=== PATIENT | female | born 1965 | race Caucasian/White ===

== ENCOUNTER 2020-10-25 19:58 | Inpatient (IN) | payer OTHER ==
[~2020-10-25] VITALS: Ht 172.7 cm; Wt 102.4 kg
[2020-10-25] MEDS ORDERED: CYAN500 PO (20:11)
[2020-10-25 21:03] LABS: BASOPHILS ABSOLUTE AUTO 0.04 K/mm3 (0.00-0.23); BASOPHILS PERCENT AUTO 1 % (0-2); EOSINOPHILS ABSOLUTE AUTO 0.04 K/mm3 (0.00-0.68); EOSINOPHILS PERCENT AUTO 1 % (0-6); Hematocrit 28.5 % (33.0-51.0); Hemoglobin 8.4 g/dL (11.5-16.0); IMMATURE GRAN ABSOLUTE AUTO 0.02 K/mm3 (0.00-0.10); IMMATURE GRAN PERCENT AUTO 0 % (0-1); LYMPHOCYTES ABSOLUTE AUTO 0.66 K/mm3 (0.84-5.20); LYMPHOCYTES PERCENT AUTO 14 % (21-46); MONOCYTES ABSOLUTE AUTO 0.39 K/mm3 (0.16-1.47); MONOCYTES PERCENT AUTO 8 % (4-13); Mean Corpuscular HGB 28.3 pg (26.0-34.0); Mean Corpuscular HGB Conc 29.5 g/dL (31.5-36.5); Mean Corpuscular Volume 96 fL (80-100); Mean Platelet Volume 11.1 fL (9.1-12.4); NEUTROPHILS ABSOLUTE AUTO 3.63 K/mm3 (1.96-9.15); NEUTROPHILS PERCENT AUTO 76 % (41-73); RDW Coefficient Variation 18.3 % (11.7-14.2); RDW Standard Deviation 63.7 fL (35.1-46.3); Red Blood Cell Count 2.97 M/mm3 (3.80-5.20); White Blood Cell Count 4.78 K/mm3 (4.00-11.30)
[2020-10-25 21:07] LABS: Platelet Count 33 K/mm3 (150-400)
[2020-10-25 21:20] LABS: Alanine Aminotransfer (ALT/SGP 48 U/L (12-78); Albumin/Globulin Ratio 0.8 (0.8-1.8); Alk Phos 214 U/L (50-136); Anion Gap 8 mmol/L (6-16); Aspartate Aminotrans (AST/SGOT 120 U/L (12-37); Bilirubin, Total 1.4 mg/dL (0.1-1.0); Blood Urea Nitrogen 10 mg/dL (8-24); Bun/Creatinine Ratio 14.3 (12.0-20.0); CO2, Blood 26 mmol/L (21-32); Calcium, Blood 8.5 mg/dL (8.5-10.1); Chloride, Blood 109 mmol/L (98-108); Glomerular Filtration Rate >60 (60-); Glucose, Blood 99 mg/dL (70-99); Potassium, Blood 3.9 mmol/L (3.5-5.5); Sodium, Blood 143 mmol/L (136-145)
[2020-10-25] MEDS ORDERED: GABAPENTIN600 MG PO (22:27)
[2020-10-25 22:28] LABS: International Normalized Ratio 1.07; Prothrombin Time Results 11.4 Sec (9.7-11.5)
[2020-10-25] MEDS ORDERED: FOLI400 PO (22:28)
[2020-10-25] MEDS ORDERED: B-1100 M1 PO (22:28)
[2020-10-25] MEDS ORDERED: MELATONIN5 M1 PO (22:29)
[2020-10-25] MEDS ORDERED: MULVITA PO (22:29)
[2020-10-25] MEDS ORDERED: HYDPAM50 PO (22:30)
[2020-10-25] MEDS ORDERED: CLON.1 PO (22:32)
[2020-10-25] MEDS ORDERED: METO25 PO (22:33)
[2020-10-25] MEDS ORDERED: TRAZ50 PO (22:34)
[2020-10-25] MEDS ORDERED: PROM25 PO (22:34)
[2020-10-25] MEDS ORDERED: OMEP20ER PO (22:38)
[2020-10-25] MEDS ORDERED: SPIR25 PO (22:38)
[2020-10-25] MEDS ORDERED: ESCI10 PO (22:38)
--- NOTE | 2020-10-26 00:15 | NUR ---
ADMIT RECEIVED FROM ER VIA GURNEY. ORIENTED TO SELF AND EVENT. OCCASIONAL CONFUSED CONVERSATION. SLOW VERBAL RESPONSE NOTED. REPOSITIONS SELF IN BED. MOVES ALL EXTREMITIES. DENIES C/O PAIN OTHER THAN A MILD HEADACHE. ALSO C/O INTERMITTENT MILD NAUSEA. IMPULSIVE BEHAVIOR NOTED. BED ALARM ON. MONITOR SHOWS SR-ST, RATE 90s-100s. 2L NC. RESPIRATIONS EVEN AND UNLABORED. JACK PATENT AND DRAINING EMMANUEL URINE. BANANA BAG INFUSING AT 200CC/HR. SEE ADMIT ASSESSMENT FOR FULL ASSESSMENT.
[2020-10-26 02:04] LABS: U Amphetamine Screen Not Detected; U Barbituate Screen Not Detected; U Benzodiazapine Screen DETECTED; U Buprenorphine Screen Not Detected; U Cannabinoids Screen Not Detected; U Cocaine Screen Not Detected; U Methadone Screen Not Detected; U Methamphetamine Screen Not Detected; U Opiates Screen Not Detected; U Oxycodone Screen Not Detected; U Phencyclidine Screen Not Detected; U Propoxyphene Screen Not Detected
[2020-10-26 03:43] LABS: BASOPHILS ABSOLUTE AUTO 0.04 K/mm3 (0.00-0.23); BASOPHILS PERCENT AUTO 1 % (0-2); EOSINOPHILS ABSOLUTE AUTO 0.05 K/mm3 (0.00-0.68); EOSINOPHILS PERCENT AUTO 2 % (0-6); Hematocrit 24.4 % (33.0-51.0); Hemoglobin 7.2 g/dL (11.5-16.0); IMMATURE GRAN ABSOLUTE AUTO 0.01 K/mm3 (0.00-0.10); IMMATURE GRAN PERCENT AUTO 0 % (0-1); LYMPHOCYTES ABSOLUTE AUTO 0.81 K/mm3 (0.84-5.20); LYMPHOCYTES PERCENT AUTO 25 % (21-46); MONOCYTES ABSOLUTE AUTO 0.31 K/mm3 (0.16-1.47); MONOCYTES PERCENT AUTO 10 % (4-13); Mean Corpuscular HGB 28.3 pg (26.0-34.0); Mean Corpuscular HGB Conc 29.5 g/dL (31.5-36.5); Mean Corpuscular Volume 96 fL (80-100); Mean Platelet Volume 12.3 fL (9.1-12.4); NEUTROPHILS PERCENT AUTO 62 % (41-73); RDW Coefficient Variation 18.3 % (11.7-14.2); RDW Standard Deviation 63.1 fL (35.1-46.3); Red Blood Cell Count 2.54 M/mm3 (3.80-5.20); White Blood Cell Count 3.22 K/mm3 (4.00-11.30)
[2020-10-26 03:50] LABS: Platelet Count 29 K/mm3 (150-400)
[2020-10-26 04:00] LABS: Alanine Aminotransfer (ALT/SGP 39 U/L (12-78); Albumin, Blood 2.6 g/dL (3.4-5.0); Albumin/Globulin Ratio 0.8 (0.8-1.8); Alk Phos 175 U/L (50-136); Anion Gap 5 mmol/L (6-16); Aspartate Aminotrans (AST/SGOT 98 U/L (12-37); Bilirubin, Total 1.5 mg/dL (0.1-1.0); Blood Urea Nitrogen 10 mg/dL (8-24); Bun/Creatinine Ratio 16.2 (12.0-20.0); CO2, Blood 28 mmol/L (21-32); Calcium, Blood 7.9 mg/dL (8.5-10.1); Chloride, Blood 109 mmol/L (98-108); Creatinine, Blood 0.62 mg/dL (0.40-1.00); Globulin, Blood 3.4 g/dL (2.2-4.0); Glomerular Filtration Rate >60 (60-); Glucose, Blood 106 mg/dL (70-99); Potassium, Blood 3.3 mmol/L (3.5-5.5); Sodium, Blood 142 mmol/L (136-145)
[2020-10-26 04:01] LABS: Percent Saturation 32.8 % (15.0-50.0)
--- NOTE | 2020-10-26 06:42 | NUR ---
SHIFT SUMMARY NO ACUTE CHANGES. CIWA SCORE BETWEEN 9-12. PRECEDEX NOW INFUSING @ 0.3MCG/KG/HR. PT CONTINUES TO BE IMPULSIVE AT TIMES, BUT IS REDIRECTABLE. GUALBERTO VEST IN PLACE. TOOK SMALL SIPS OF WATER, BUT DOES FALL ASLEEP WHILE TRYING TO DRINK. VSS. O2 2L NC. CONTINUES WITH SNORING RESPIRATIONS WHEN ASLEEP. JACK PATENT AND DRAINING EMMANUEL URINE. PAS TO BLEs. WILL REPORT TO ONCOMING RN WHEN AVAILABLE.
--- NOTE | 2020-10-26 08:37 | NUR ---
CARE ASSUMED ASSESSMENT COMPLETED. PT AWAKE BUT DROWSY UPON ASSESSMENT, WAS ABLE TO SIT UP AND TAKE LIBRIUM WITHOUT DIFFICULTY. DENIES PAIN OR NAUSEA AT THIS TIME, IS ORIENTED X4, IS ABLE TO RECALL EVENTS LEADING UP TO HOSPITALIZATION. PT PLEASANT AND COOPERATIVE WITH CARE. CIWA SCORE 4, PRECEDEX 0.3MCG, WILL ATTEMPT TO TITRATE DOWN ABLE. LS CLEAR, HRR, VSS. DR. MARTÍNEZ IN TO SEE PATIENT, AWARE OF PLT AND HGB LEVELS, WILL RECHECK ORDERED.
[2020-10-26 10:10] LABS: BASOPHILS ABSOLUTE AUTO 0.02 K/mm3 (0.00-0.23); BASOPHILS PERCENT AUTO 1 % (0-2); EOSINOPHILS ABSOLUTE AUTO 0.05 K/mm3 (0.00-0.68); EOSINOPHILS PERCENT AUTO 2 % (0-6); Hematocrit 25.4 % (33.0-51.0); Hemoglobin 7.6 g/dL (11.5-16.0); IMMATURE GRAN PERCENT AUTO 0 % (0-1); LYMPHOCYTES PERCENT AUTO 15 % (21-46); MONOCYTES ABSOLUTE AUTO 0.24 K/mm3 (0.16-1.47); MONOCYTES PERCENT AUTO 9 % (4-13); Mean Corpuscular HGB 28.8 pg (26.0-34.0); Mean Corpuscular HGB Conc 29.9 g/dL (31.5-36.5); Mean Corpuscular Volume 96 fL (80-100); Mean Platelet Volume 12.2 fL (9.1-12.4); NEUTROPHILS ABSOLUTE AUTO 2.03 K/mm3 (1.96-9.15); NEUTROPHILS PERCENT AUTO 74 % (41-73); RDW Standard Deviation 63.7 fL (35.1-46.3); Red Blood Cell Count 2.64 M/mm3 (3.80-5.20); White Blood Cell Count 2.74 K/mm3 (4.00-11.30)
[2020-10-26 10:16] LABS: Platelet Count 29 K/mm3 (150-400)
--- NOTE | 2020-10-26 14:47 | NUR ---
TRANSFER NOTE PT SLEPT MOST OF MORNING, VSS. DR. MARTÍNEZ AWARE OF LAB RESULTS, NEW ORDER FOR GI CONSULT. PRECEDEX TITRATED OFF, PT WOKE UP AND ATE LUNCH, TOLERATED WELL. DR. MAC IN TO ASSESS, NEW ORDERS RECEIVED, NO PLANS FOR SCOPE AT THIS TIME, PT ALLOWED TO EAT. PT UP TO BSC WITH MAX 2 PERSON ASSIST, HAD A LARGE BROWN BM, NO OBVIOUS BLOOD IN STOOL. PT BACK TO BED FOR US, TOLERATED WELL, THEN SAT UP AND ATE A SNACK, IS NOW RESTING IN BED WATCHING TV. PT REMAINS ORIENTED BUT IMPULSIVE, GUALBERTO REMAINS IN PLACE FOR PATIENT SAFETY. DAUGHTER UPDATED, REPORTS PT HAS A HISTORY OF BLEEDING ULCERS WITH CAUTERIZATION IN 2017 AND PARACENTESIS. REPORT TO VICTOR M, ANESTHESIOLOGIST ASSISTANT, PT TO PCU 1.
--- NOTE | 2020-10-26 19:30 | NUR ---
ASSUMED CARE PT A&O; SITTING IN BED; DENIES CHEST PAIN; VSS; HR 80'S; O2 SATS >93 ON RA; GUALBERTO VEST IN PLACE; JACK PATENT & DRAINING; CIWA 7; CALL LIGHT IN REACH; BED IN LOWEST POSITION; BED ALARM ON.
--- NOTE | 2020-10-26 19:46 | NUR ---
PT TRANSFERED FROM ICU TO PCU TODAY. NO ACUTE CHANGES. PT ALERT AND QUIET IN ROOM, TOLERATING GUALBERTO VEST WELL. PT ABLE TO ANSWER QUESTIONS APPROPRIATELY AND MAKE HER NEEDS KNOWN. PT TAKES SCHEDULED DOSE OF LIBRIUM W/OUT DIFFICULTY, DOES NOT REQUIRE PRN DOSE THIS AFTERNOON. REPORT HAS BEEN GIVEN TO KARLENE FAITH TO ASSUME CARE OF PT.
[2020-10-27 03:39] LABS: BASOPHILS ABSOLUTE AUTO 0.03 K/mm3 (0.00-0.23); BASOPHILS PERCENT AUTO 1 % (0-2); EOSINOPHILS ABSOLUTE AUTO 0.09 K/mm3 (0.00-0.68); EOSINOPHILS PERCENT AUTO 3 % (0-6); Hemoglobin 7.5 g/dL (11.5-16.0); IMMATURE GRAN ABSOLUTE AUTO 0.01 K/mm3 (0.00-0.10); IMMATURE GRAN PERCENT AUTO 0 % (0-1); LYMPHOCYTES ABSOLUTE AUTO 0.76 K/mm3 (0.84-5.20); LYMPHOCYTES PERCENT AUTO 24 % (21-46); MONOCYTES ABSOLUTE AUTO 0.34 K/mm3 (0.16-1.47); MONOCYTES PERCENT AUTO 11 % (4-13); Mean Corpuscular HGB 28.8 pg (26.0-34.0); Mean Corpuscular Volume 96 fL (80-100); Mean Platelet Volume 11.2 fL (9.1-12.4); NEUTROPHILS PERCENT AUTO 62 % (41-73); NRBC ABSOLUTE 0.02 K/mm3 (0.00-0.02); NRBC Auto 0.6 /100 WBC (0.0-0.2); RDW Coefficient Variation 17.9 % (11.7-14.2); RDW Standard Deviation 63.1 fL (35.1-46.3); White Blood Cell Count 3.23 K/mm3 (4.00-11.30)
[2020-10-27 03:52] LABS: Platelet Count 32 K/mm3 (150-400)
[2020-10-27 03:53] LABS: Alanine Aminotransfer (ALT/SGP 34 U/L (12-78); Albumin, Blood 2.6 g/dL (3.4-5.0); Albumin/Globulin Ratio 0.8 (0.8-1.8); Alk Phos 173 U/L (50-136); Anion Gap 5 mmol/L (6-16); Aspartate Aminotrans (AST/SGOT 84 U/L (12-37); Bilirubin, Total 1.8 mg/dL (0.1-1.0); Blood Urea Nitrogen 8 mg/dL (8-24); Bun/Creatinine Ratio 14.5 (12.0-20.0); CO2, Blood 27 mmol/L (21-32); Calcium, Blood 7.8 mg/dL (8.5-10.1); Chloride, Blood 109 mmol/L (98-108); Creatinine, Blood 0.55 mg/dL (0.40-1.00); Globulin, Blood 3.3 g/dL (2.2-4.0); Glomerular Filtration Rate >60 (60-); Glucose, Blood 86 mg/dL (70-99); Potassium, Blood 3.3 mmol/L (3.5-5.5); Sodium, Blood 141 mmol/L (136-145); Total Protein, Blood 5.9 g/dL (6.4-8.2)
--- NOTE | 2020-10-27 05:48 | NUR ---
SHIFT SUMMARY PT A&O X 4; MAKES NEEDS KNOWN; GUALBERTO VEST IN PLACE; VSS; DENIES CHEST PAIN; NSR NOTED ON TELE W/ HR 80'S; O2 SATS > 93 ON RA; DENIES SOB; JACK PATENT & DRAINING; PT SLEPT A COUPLE HOURS; LIBRIUM Q6; CIWA 06/07; CALL LIGHT IN REACH; BED IN LOWEST POSITION; BED ALARM ON; PT RESTING IN BED; NO DISTRESS NOTED; WILL CONTINUE TO MONITOR CLOSELY UNTIL HAND OFF TO DAY SHIFT RN.
--- NOTE | 2020-10-27 07:05 | NUR ---
PROCEDURE [place] FROM DAY SURGERY TO BEDSIDE TO TAKE PATIENT TO PROCEDURE. PT ABLE TO STAND AND TRANSFER TO BED WITH TWO PERSON ASSIST. WEAK AND SHAKEY BUT STEADY. TELEMETRY REMOVED, PCU PLASTER PATTERNMAKER NOTIFIED.
--- NOTE | 2020-10-27 07:30 | NUR ---
. BROUGHT TO [facility] ADMISSION PRE PROCEDURE STARTED Patient confirms NPO status and agrees with scheduled surgery. History, Chart, Medications and Allergies reviewed before start of procedure.
--- NOTE | 2020-10-27 07:30 | NUR ---
REPORT RECEIVED FROM KARLENE FAITH
[2020-10-27 07:37] LABS: Influenza A, PCR Negative (NEGATIVE); Influenza B, PCR Negative (NEGATIVE); Resp Syncytial Virus, PCR Negative (NEGATIVE); SARS-Cov-2 (COVID-19) PCR, MMC Negative (NEGATIVE)
--- NOTE | 2020-10-27 08:08 | NUR ---
10/27/20 0808 Fortunato Smith PATIENT DETERMINED TO BE ASA APPROPRIATE FOR PROPOFOL SEDATION PRIOR TO START OF PROCEDURE BY DR. MAC Bite Block Placed 3-LEAD EKG REVIEWED WITH PHYSICIAN PRIOR TO START OF PROCEDURE. Patient to ENDO 1 MONITOR INTACT WITH CONTINUOUS PULSE OXIMETRY AND INTERMITTENT BP. History, Chart, Medications and Allergies reviewed before start of procedure. O2 VIA N/C INTACT THROUGHOUT SEDATION/PROCEDURE.
--- NOTE | 2020-10-27 08:42 | NUR ---
RETURN FROM OR PT BACK FROM EGD. VITALS STABLE. DR. MAC TO BEDSIDE TO DISCUSS FINDINGS. PT TEARFUL, REQUESTING NOT TO WEAR GUALBERTO ANY LONGER. DISCUSSED SAFETY/BEHAVIOR RELATED TO THIS AND PT AGREES TO CALL FOR NEEDS. BED ALARM IN PLACE.
--- NOTE | 2020-10-27 09:56 | NUR ---
UPDATE SINCE RETURNING TO PCU, PT HAS SET OFF BED ALARM MULTIPLE TIMES BUT IS VERY REDIRECTABLE. DR. MILLS TO BEDSIDE FOR ASSESSMENT. PLAN TO TRANSFER TO MEDICAL FLOOR, DC TELEMETRY, DC GUERO, ADD PT/OT PT IS WEAK. PT ABLE TO STAND UP AND TAKE A FEW STEPS, BUT QUICKLY LOSES HER BALANCE AND FALLS BACKWARDS. ABLE TO GUIDE BACK INTO BED. CONTINUE WITH TWO PERSON ASSIST AND BED ALARM. PT ORIENTED X 4 BUT FORGETFUL AND APPEARS TO NOT RETAIN EDUCATION MAT MAN. 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 MILLS AND CHEN NAIL SETTER THAT SHE IS GOING TO GO HOME TO WILDER FOR 14 DAYS AND QUARANTINE AND GET STRONGER BEFORE RETURNING TO [facility]. DR. MILLS AWARE.
--- NOTE | 2020-10-27 13:25 | NUR ---
CIWA PT'S ANXIETY AND TREMORS IMPROVING AND PT HAS BEEN CALM, COOPERATIVE AND REDIRECTABLE. HOWEVER, WITHIN THE LAST 10 MINUTES PT HAS SET OFF BED ALARM TWICE. AT MOST RECENT OCCURENCE, PT STATES, "I WAS JUST TRYING TO HELP THAT GIRL AT THE DOOR, IT IS A CHILD LOCK." PT STANDING UP ON WINDOW SIDE OF BED, PULLING AT IV. REDIRECTABLE BACK TO BED. ABLE TO STATE NAME, DAY, TIME AND LOCATION. SEE REPEAT CIWA ASSESSMENT. ADDITIONAL DOSE OF LIBRIAM GIVEN PER ORDERS.
--- NOTE | 2020-10-27 14:46 | NUR ---
UPDATE PT WORKED WITH PHYSICAL THERAPY, ABLE TO WALK AROUND UNIT WITH FWW AND GAIT BELT AND ONE PERSON ASSIST. PT EXTREMELY IMPULSIVE, NOT FOLLOWING DIRECTIONS WELL. PT CONTINUES TO BE ALERT AND ORIENTED X 4. PT TELLS PHYSICAL THERAPIST THAT SHE PLANS TO LEAVE. WHEN DISCUSSING THIS WITH PATIENT, SHE SAYS SHE WANTS TO LEAVE AGAINST MEDICAL ADVICE. DISCUSSED CONCERNS FOR SAFETY FOR HER AT HOME SHE CONTINUES TO BE AN EXTREMELY HIGH FALL RISK. PT CONTINUES TO BE INSISTENT ON GOING HOME. CALLING VARIOUS FAMILY MEMBERS LOOKING FOR A RIDE. PT AGREES TO WAIT UNTIL WE CAN MAKE A SAFE PLAN FOR HER. SPOKE WITH DR. MARTÍNEZ REGARDING PT'S REQUESTS. PER DR. MARTÍNEZ, SHE WILL BE TO BEDSIDE TO TALK WITH PATIENT WHEN AVAILABLE. ATTEMPTED TO CALL CARE MANAGEMENT AND NOBODY AVAILABLE AT THIS TIME. WHILE ON THE PHONE WITH DR. MARTÍNEZ, PT GETS UP OUT OF RECLINER, NEARLY PULLING OUT IV, SETTING OFF BED ALARM AND STATES, "I JUST WANT TO GO HOME." ABLE TO REDIRECT PATIENT BACK TO CHAIR. SKIP TENDER'S TO BEDSIDE, ASSISTED BACK TO BED. PT RESTING QUIETLY IN BED AT THIS TIME.
--- NOTE | 2020-10-27 15:37 | NUR ---
UPDATE DR. MARTÍNEZ TO BEDSIDE TO TALK WITH PATIENT. PT STATES HER DAUGHTER CONVINCED HER TO STAY. CALM, COOPERATIVE AT THIS TIME. BED ALARM CONTINUES TO BE IN PLACE.
--- NOTE | 2020-10-27 18:02 | NUR ---
SUMMARY MEDICAL FLOOR NO TELEMETRY. PT CONTINUES TO BE EXTREMELY IMPULSIVE, SETTING OFF THE BED ALARM MULTIPLE TIMES PER HOUR, BUT ABLE TO VERBALLY REDIRECT. VITALS STABLE. SEE REPEAT ASSESSMENTS. PT CONTINUES TO REQUEST THINGS LIKE TAKING IV OUT BUT IS AGREEABLE TO STAY OVERNIGHT AT THIS POINT. ETOH WITHDRAWAL MANAGEABLE, SEE CIWA ASSESSMENTS. SEE EMAR FOR MEDICATION ADMINISTRATION.
--- NOTE | 2020-10-27 19:46 | NUR ---
ASSUMED CARE PT A&O X3-4; AGGITATED, STATES SHE WANTS HER IV OUT AND "JUST WANTS TO LIVE A LIFE"; DISTRACTED PT W/ CONVERSATION, OFFERED PT TO SIT IN RECLINER, SHE REFUSED; VSS; HR 90'S; O2 SATS >93 ON RA; CALL LIGHT IN REACH; BED IN LOWEST POSITION; BED ALARM ON.
--- NOTE | 2020-10-28 04:06 | NUR ---
SHIFT SUMMARY PT A&O X3; VERY NEEDY AND IMPULSIVE THIS SHIFT; CIWA 12-14; SCHEDULED LIBRIUM AND ADDITIONAL LIBRIUM GIVEN PER EMAR; ATIVAN GIVEN 1X THIS SHIFT; THIS RN SPENT SIGNIFICANT TIME IN ROOM SITTING W/ PT ALLOWING TIME TO EXPRESS FEELINGS; STATES SHE KNOWS SHE NEEDS TO GO BACK TO [facility] TO FINISH TREATMENT; PT STATES HER FAMILY IS INSISTING SHE RECEIVES TREATMENT FOR ALCOHOL DEPENDENCY; ELECTRONICS TECHNOLOGY DEPARTMENT CHAIR WALKED PT ABOUT ROOM W/ FWW REQUESTED; UP TO CHAIR AND BACK TO BED FREQUENTLY; SETTING BED ALARM OFF EVERY FEW MINUTES; VSS; NO TELE IN PLACE; O2 SATS >93 ON RA; CALL LIGHT IN REACH; BED IN LOWEST POSITION; BED ALARM ON; WILL CONTINUE TO MONITOR CLOSELY UNTIL HAND OFF TO DAY SHIFT RN.
[2020-10-28 04:11] LABS: BASOPHILS ABSOLUTE AUTO 0.02 K/mm3 (0.00-0.23); BASOPHILS PERCENT AUTO 1 % (0-2); EOSINOPHILS PERCENT AUTO 4 % (0-6); Hemoglobin 7.9 g/dL (11.5-16.0); IMMATURE GRAN PERCENT AUTO 0 % (0-1); LYMPHOCYTES ABSOLUTE AUTO 0.66 K/mm3 (0.84-5.20); LYMPHOCYTES PERCENT AUTO 23 % (21-46); MONOCYTES ABSOLUTE AUTO 0.37 K/mm3 (0.16-1.47); MONOCYTES PERCENT AUTO 13 % (4-13); Mean Corpuscular HGB 28.6 pg (26.0-34.0); Mean Corpuscular HGB Conc 29.3 g/dL (31.5-36.5); Mean Corpuscular Volume 98 fL (80-100); NEUTROPHILS ABSOLUTE AUTO 1.73 K/mm3 (1.96-9.15); NEUTROPHILS PERCENT AUTO 60 % (41-73); RDW Coefficient Variation 18.2 % (11.7-14.2); RDW Standard Deviation 64.7 fL (35.1-46.3); Red Blood Cell Count 2.76 M/mm3 (3.80-5.20); White Blood Cell Count 2.88 K/mm3 (4.00-11.30)
[2020-10-28 04:18] LABS: Platelet Count 47 K/mm3 (150-400)
[2020-10-28 04:32] LABS: Alanine Aminotransfer (ALT/SGP 34 U/L (12-78); Albumin, Blood 2.9 g/dL (3.4-5.0); Albumin/Globulin Ratio 0.8 (0.8-1.8); Alk Phos 178 U/L (50-136); Anion Gap 7 mmol/L (6-16); Aspartate Aminotrans (AST/SGOT 73 U/L (12-37); Bilirubin, Total 1.6 mg/dL (0.1-1.0); Blood Urea Nitrogen 6 mg/dL (8-24); Bun/Creatinine Ratio 9.8 (12.0-20.0); CO2, Blood 25 mmol/L (21-32); Calcium, Blood 8.1 mg/dL (8.5-10.1); Chloride, Blood 110 mmol/L (98-108); Creatinine, Blood 0.61 mg/dL (0.40-1.00); Globulin, Blood 3.7 g/dL (2.2-4.0); Glomerular Filtration Rate >60 (60-); Glucose, Blood 87 mg/dL (70-99); Potassium, Blood 3.7 mmol/L (3.5-5.5); Sodium, Blood 142 mmol/L (136-145); Total Protein, Blood 6.6 g/dL (6.4-8.2)
--- NOTE | 2020-10-28 08:20 | NUR ---
DR. MILLS AT BEDSIDE. DISCUSSED POC. NOTIFIED HIM THAT ACCORDING TO REPORT PATIENT WAS UP OUT OF BED AND SET OFF THE BED ALARM MULTIPLE TIMES LAST NIGHT. PATIENT WAS SLIGHTLY CONFUSED. PATIENT IS ABLE TO ANSWER DR. MILSL'S QUESTIONS APPROPRIATELY. CALM AT THIS TIME. DR. MILLS STATES PLAN IS TO DISCHARGE BACK TO [facility] TODAY. REQUESTED THAT I CALL PHYSICAL THERAPY TO REEVALUATE PATIENT AND CALL [facility] TO SEE IF SHE IS ABLE TO RETURN AND THEN NOTIFY HIM SO HE CAN PROCEED WITH DISCHARGE.
--- NOTE | 2020-10-28 14:20 | NUR ---
AT 1420, PATIENT UP OUT OF BED. CONFUSED TO PLACE. DID NOT KNOW SHE WAS IN THE HOSPITAL OR IN [place]. REPORTING HEADACHE PAIN RATED 8/10. CIWA 13. ADMINISTERED LIBRIUM PER EMAR. CIWA NOW 6. PATIENT ANSWERING QUESTIONS APPROPRIATELY BUT STILL MAKES COMMENTS THAT MAKE HER SEEM CONFUSED.
--- NOTE | 2020-10-28 15:45 | NUR ---
SPOKE WITH ADAM SEVERAL TIMES TODAY REGARDING PATIENT DISCHARGE TO [facility]. [facility] STATED THAT THEY ARE UNABLE TO FILL PATIENT'S MEDICATION LIST UNTIL FRIDAY, THEY USE A DELIVERY SERVICE. THEY USUALLY HAVE PATIENTS BRING A HOME MEDICATION SUPPLY FOR 7 DAYS WHEN THEY ARE ADMITTED. THEY DO NOT HAVE ANY MEDICATIONS FOR HER AT [facility] EVEN THOUGH THE PATIENT WAS THERE PREVIOUSLY. CALLED DR. MILLS AND DISCUSSED PLAN WITH HIM. PATIENT UNABLE TO GET HER MED LIST MEDICATIONS WHILE AT [facility] UNTIL FRIDAY. SHE IS STILL A LITTLE CONFUSED, CIWA WAS UP TO 13 AND NOW IS DOWN TO 6. SHE WOULD BE UNSAFE TO GET ON A TAXI, GO TO A PHARMACY AND LUSTERER HER PRESCRIPTIONS AND THEN GET A TAXI TO GO TO [facility]. PATIENT IS FROM [place] AND DOES NOT HAVE ANYONE IN TOWN WHO WOULD BE ABLE TO LUSTERER HER PRESCRIPTIONS AND TAKE THEM TO [facility] FOR HER. DR. MILLS ORDERED TO DC DISCHARGE AT THIS TIME. BONNIE CERVANTES HAD WALKER DELIVERED FROM [facility] TO PATIENT ROOM. [facility] REQUIRES PATIENT TO HAVE WALKER IF PHYSICAL THERAPY RECOMMENDED IT.
--- NOTE | 2020-10-28 16:30 | NUR ---
PATIENT WANTING TO GO HOME, STATES "I DON'T UNDERSTAND WHY I CAN'T LEAVE". EXPLAINED TO HER THE REASONS WHY SHE COULD NOT BE DISCHARGED TODAY, THAT WE TRIED TO DISCHARGE TO [facility] BUT IT WAS UNSAFE FOR HER TO GO TO THE PHARMACY, GET HER MEDS, AND THEN GET A TAXI BACK TO [facility]. SHE SAID "IT'S NOT FAIR THAT YOU GUYS KEEP ME HERE FOREVER! I'VE BEEN HERE TWO WEEKS!" REORIENTED PATIENT. SHE SAID "LET ME GET A TAXI TO MY HOUSE". NOTIFIED HER THAT SHE WAS IN [place] AND NOT IN [place] WHERE SHE LIVES. PATIENT AGREEABLE TO STAY IN THE HOSPITAL AT THIS TIME.
--- NOTE | 2020-10-28 19:41 | NUR ---
SHIFT SUMMARY: PATIENT A/OX3, CAN ANSWER QUESTIONS APPROPRIATELY BUT GETS CONFUSED AT TIMES AND HAS TO BE REORIENTED. CIWA WAS UP TO 13, LIBRIUM GIVEN, CIWA DOWN TO 6. LIBRIUM ONLY GIVEN X1 THIS SHIFT. HAS DENIED PAIN. HAS SET OFF BED ALARM MULTIPLE TIMES THIS SHIFT. ASSESSED BY PHYSICAL THERAPY WHO RECOMMENDED A WALKER IF PATIENT GOES BACK TO [facility], [facility] SAID PATIENT NEEDS TO BRING HER OWN WALKER, [facility] DELIVERED WALKER TO PATIENT, IT IS IN HER ROOM. UP WITH SBA. SEE PREVIOUS NOTE ON [facility]. PLAN IS TO DISCHARGE BACK TO [facility] WHEN APPROPRIATE. REPORT GIVEN TO ONCOMING RN.
--- NOTE | 2020-10-29 06:46 | NUR ---
SHIFT SUMMARY PT WAS CONFUSED T/O THE NIGHT, NOT KNOWING WHERE SHE WAS AND TALKING TO ME IF I WERE A FAMILY MEMBER. PT WAS PLEASENT AND COOPERATIVE WITH CARE BUT WOULD GET VERY CONCERNED ABOUT HER BELONGINGS AND CRY THINKING THEY WERE STOLEN. PT HAD VERY LOW CIWA'S OF 2 T/O THE SHIFT. NO PRN MEDICATION WAS GIVEN. PT STATED NO PAIN AND WAS ABLE TO SLEEP. VITALS WERE STABLE. PT HAD AN UNEVENTFUL NIGHT. WILL CONTINUE TO MONITOR UNTIL SHIFT CHANGE.
--- NOTE | 2020-10-29 07:35 | NUR ---
RECEIVED REPORT FROM KARLENE VIZCARRA. PT IS RESTING IN BED, LYING ON RIGHT SIDE WITH EYES CLOSED, EVEN AND UNLABORED RESPIRATIONS.
--- NOTE | 2020-10-29 11:25 | NUR ---
Attempted to contact [facility] lactation coordinator regarding pt's discharge today to their program. Left message on Carito's voicemail, , option "2".
--- NOTE | 2020-10-29 12:24 | NUR ---
Spoke with detox staff at [facility]; states pt can be admitted to their facility today if med rec is faxed to them and if the pt has walker and able to ambulate herself to the bathroom.
== END 2020-10-29 15:55 | DRG 897 ==
LOC: ER 19:58 → ICUW 23:53 → PCU 10-26 00:10 → ER 10-26 00:10 → ICUW 10-26 00:19 → PCU 10-26 15:10 → ICUW 10-26 15:10 → PCU 10-27 12:19
PROVIDERS: Emergency Medicine; Family Medicine; Internal Medicine Gastroenterology; Nurse Practitioner Acute Care; ADMIT Internal Medicine
PROC: 3E0234Z Introduction of Serum, Toxoid and Vaccine into Muscle, Percutaneous Approach (ICD-10-PCS; 2020-10-27)
PROC: 0DJ08ZZ Inspection of Upper Intestinal Tract, Via Natural or Artificial Opening Endoscopic (ICD-10-PCS; principal; 2020-10-27 08:00)
DX: F10.231 Alcohol dependence with withdrawal delirium (principal); D61.818 Other pancytopenia; D62 Acute posthemorrhagic anemia; K22.10 Ulcer of esophagus without bleeding; Z23 Encounter for immunization; K70.30 Alcoholic cirrhosis of liver without ascites; Z20.828 Contact with and (suspected) exposure to other viral communicable diseases; F32.9 Major depressive disorder, single episode, unspecified; K21.9 Gastro-esophageal reflux disease without esophagitis; I10 Essential (primary) hypertension; W19.XXXA Unspecified fall, initial encounter; E87.6 Hypokalemia; K63.5 Polyp of colon; D69.6 Thrombocytopenia, unspecified; E66.9 Obesity, unspecified; Z68.30 Body mass index [BMI] 30.0-30.9, adult; Z98.84 Bariatric surgery status
CPT/HCPCS: 0241U; 36415; 51702; 70450; 71045; 76700; 80053; 82272; 82607; 82728; 82746; 83540; 83550; 83690; 83735; 85025; 85610; 86850; 86900; 86901; 93005; 93010; 96361-59; 96365-59; 96367; 96375-59; 96376-59; 97110; 97116; 97161; 97165; 97535; 99285-25; A9270; A9270-GY; C9113; G0480; J2060; J2250; J2704; J3411; J3475; J7042; J7120; Q2038

== ENCOUNTER 2020-11-21 16:03 | Emergency (ER) | payer OTHER ==
[~2020-11-21] VITALS: Ht 170.2 cm; Wt 91.6 kg
[~2020-11-21 16:03] MED LIST: B-1100 M1 PO; CLON.1 PO; CYAN500 PO; ESCI10 PO; FOLI400 PO; GABAPENTIN600 MG PO; HYDPAM50 PO; MELATONIN5 M1 PO; METO25 PO; MULVITA PO; OMEP20ER PO; PROM25 PO; SPIR25 PO; TRAZ50 PO
[2020-11-21 17:32] LABS: Alanine Aminotransfer (ALT/SGP 14 U/L (12-78); Albumin, Blood 2.3 g/dL (3.4-5.0); Albumin/Globulin Ratio 0.5 (0.8-1.8); Alk Phos 134 U/L (50-136); Anion Gap 7 mmol/L (6-16); Aspartate Aminotrans (AST/SGOT 39 U/L (12-37); Bilirubin, Total 0.5 mg/dL (0.1-1.0); Blood Urea Nitrogen 8 mg/dL (8-24); Bun/Creatinine Ratio 12.6 (12.0-20.0); CO2, Blood 21 mmol/L (21-32); Calcium, Blood 8.5 mg/dL (8.5-10.1); Chloride, Blood 107 mmol/L (98-108); Creatinine, Blood 0.63 mg/dL (0.40-1.00); Globulin, Blood 4.4 g/dL (2.2-4.0); Glomerular Filtration Rate >60 (60-); Glucose, Blood 87 mg/dL (70-99); Sodium, Blood 135 mmol/L (136-145); Total Protein, Blood 6.7 g/dL (6.4-8.2); Troponin I <0.015 ng/mL (0.000-0.040)
[2020-11-21 18:01] LABS: BASOPHILS ABSOLUTE AUTO 0.07 K/mm3 (0.00-0.23); BASOPHILS PERCENT AUTO 1 % (0-2); EOSINOPHILS ABSOLUTE AUTO 0.22 K/mm3 (0.00-0.68); EOSINOPHILS PERCENT AUTO 3 % (0-6); Hematocrit 30.4 % (33.0-51.0); IMMATURE GRAN ABSOLUTE AUTO 0.01 K/mm3 (0.00-0.10); IMMATURE GRAN PERCENT AUTO 0 % (0-1); LYMPHOCYTES ABSOLUTE AUTO 1.18 K/mm3 (0.84-5.20); LYMPHOCYTES PERCENT AUTO 18 % (21-46); MONOCYTES ABSOLUTE AUTO 0.48 K/mm3 (0.16-1.47); MONOCYTES PERCENT AUTO 8 % (4-13); Mean Corpuscular HGB 26.4 pg (26.0-34.0); Mean Corpuscular HGB Conc 29.6 g/dL (31.5-36.5); Mean Corpuscular Volume 89 fL (80-100); Mean Platelet Volume 10.8 fL (9.1-12.4); NEUTROPHILS ABSOLUTE AUTO 4.48 K/mm3 (1.96-9.15); NEUTROPHILS PERCENT AUTO 70 % (41-73); Platelet Count 275 K/mm3 (150-400); RDW Coefficient Variation 17.6 % (11.7-14.2); RDW Standard Deviation 57.5 fL (35.1-46.3); Red Blood Cell Count 3.41 M/mm3 (3.80-5.20); White Blood Cell Count 6.44 K/mm3 (4.00-11.30)
== END 2020-11-21 19:07 | disposition home or self-care (01) ==
LOC: ER 16:03
PROVIDERS: Physician Assistant
DX: R60.0 Localized edema (principal); I10 Essential (primary) hypertension; Z79.899 Other long term (current) drug therapy
CPT/HCPCS: 36415; 71046; 80053; 83880; 84484; 85025; 93005; 93010; 96374; 99284-25; J1940